=== PATIENT | male | born 1965 | race Caucasian/White ===

== ENCOUNTER 2020-02-01 16:18 | Emergency (ER) | payer MEDICAID, OTHER ==
--- NOTE | 2020-02-01 17:13 | EDM.PDOC ---
ED HPI GENERAL MEDICAL PROBLEM - General Chief Complaint: Upper Extremity Injury/Pain Stated Complaint: SMASHED LEFT INDEX FINGER HAMMER Time Seen by Provider: 02/01/20 17:03 Source of Information: Reports: Patient History Limitations: Reports: No Limitations - History of Present Illness INITIAL COMMENTS - FREE TEXT/NARRATIVE: 54-year-old male presents to the emergency department for evaluation and treatment of nondominant hand, left second digit finger injury. Just prior to arrival patient was using a hammer to remove a pin from his tractor. He was wearing a glove. He accidentally struck his left second digit. Upon evaluating the injury he noticed bleeding from the tip of his finger and under the nail. He notes pain that includes throbbing in the fingertip. He denies any other associated symptoms. Last tetanus was 2013. Onset: Today Location: Reports: Upper Extremity, Left (2nd digit) Quality: Reports: Throbbing Severity: Moderate Associated Symptoms: Reports: No Other Symptoms - Related Data Allergies Allergy/AdvReac Type Severity Reaction Status Date / Time No Known Allergies Allergy Verified 02/01/20 16:38 Home Meds: Home Meds Baclofen 20 mg PO BEDTIME 02/01/20 [History] Gabapentin [Neurontin] 600 mg PO BID 02/01/20 [History] Nystatin [Nystatin Crm] 15 gm TOP BID 02/01/20 [History] Onabotulinumtoxina [Botox] 500 unit IJ ONETIME 02/01/20 [History] Past Medical History Musculoskeletal History: Reports: Other (See Below) Other Musculoskeletal History: cervical dystonia Dermatologic History: Reports: Other (See Below) Other Dermatologic History: rash being treated with nystatin - Infectious Disease History Infectious Disease History: Reports: Chicken Pox, Measles, Mumps Social & Family History - Family History Family Medical History: Noncontributory - Tobacco Use Smoking Status *Q: Never Smoker - Caffeine Use Caffeine Use: Reports: Soda - Alcohol Use Days Per Week of Alcohol Use: 1 Number of Drinks Per Day: 1 Total Drinks Per Week: 1 - Recreational Drug Use Recreational Drug Use: No Review of Systems - Review of Systems Review Of Systems: Comprehensive ROS is negative, except as noted in HPI. ED EXAM, GENERAL - Physical Exam Exam: See Below Exam Limited By: No Limitations General Appearance: Alert, WD/WN, No Apparent Distress Respiratory/Chest: No Respiratory Distress, Normal Breath Sounds (Thank you) Cardiovascular: Normal Peripheral Pulses, Regular Rate, Rhythm Extremities: Other (There is a crush injury to the distal left second finger. There is 100% subungual hematoma and nail remains intact. There is a small laceration located just distal and below the nail. There is full range of motion at the DIP, PIP and MCP of the left second digit. All other digits are normal of the left hand.) Neurological: Other (Normal motor and sensory function in the median, radial and ulnar distribution of the left hand.) Skin Exam: Other (Left second digit subungual hematoma and small laceration distal to them below the nail. No amputation.) Course - Vital Signs Last Recorded V/S: Last Vital Signs Temp 96.6 F L 02/01/20 16:51 Pulse 99 02/01/20 16:51 Resp 16 02/01/20 16:51 BP 151/95 H 02/01/20 16:51 Pulse Ox 97 02/01/20 16:51 - Orders/Labs/Meds Orders: Active Orders 24 hr Category Date Time Status Fingers Second Digit Lt F1 [CR] Stat Exams 02/01/20 17:06 Taken - Radiology Interpretation Free Text/Narrative:: Left second digit x-ray No fracture. No dislocation. - Re-Assessments/Exams Free Text/Narrative Re-Assessment/Exam: 02/01/20 17:13 Left second finger nail trephinated with electrocautery. Aluminum/foam splint applied to left second finger. 02/01/20 17:55 Departure - Departure Time of Disposition: 17:50 Disposition: Home, Self-Care 01 Condition: Good Clinical Impression: Subungual hematoma - Discharge Information Instructions: Subungual Hematoma Referrals: PCP,None [Primary Care Provider] - Forms: ED Department Discharge Additional Instructions: 1. Keep the injured finger above the level of your heart to decrease pain and throbbing. 2. Keep wound clean and dry and monitor for any signs of infection. If infectious symptoms and/or signs are present seek urgent evaluation. 3. Ibuprofen 400 mg every 6 hours by mouth for pain as needed. May also use ice for pain. 4. Expect that your fingernail will fall off eventually. Expect new nail growth afterwards. Sepsis Event Note (ED) - Evaluation Sepsis Screening Result: No Definite Risk - Focused Exam Vital Signs: Vital Signs Temp Pulse Resp BP Pulse Ox 02/01/20 16:51 96.6 F L 99 16 151/95 H 97 02/01/20 16:35 96.6 F L 99 16 151/95 H 97 - My Orders Last 24 Hours: My Active Orders 02/01/20 17:06 Fingers Second Digit Lt F1 [CR] Stat - Assessment/Plan Last 24 Hours: My Active Orders 02/01/20 17:06 Fingers Second Digit Lt F1 [CR] Stat
--- NOTE | 2020-02-03 10:29 | CR ---
Fingers Second Digit Lt F1 CLINICAL HISTORY: Injury FINDINGS: There is no acute fracture within the femur. No destructive changes are seen. Impression: Negative
== END 2020-02-01 17:51 | disposition home or self-care (01) ==
LOC: JP.ED 16:18
DX: S67.191A Crushing injury of left index finger, initial encounter (principal); S61.311A Laceration without foreign body of left index finger with damage to nail, initial encounter; W22.8XXA Striking against or struck by other objects, initial encounter
CPT/HCPCS: 11740; 73140-26-F1; 73140-F1; 99282; 99283-25